=== PATIENT | female | born 1975 | race American Indian/Alaskan Native ===

== ENCOUNTER 2018-04-25 14:29 | Emergency (ER) | payer OTHER ==
[~2018-04-25] VITALS: Ht 154.9 cm; Wt 59.0 kg
[2018-04-25 15:20] LABS: PLATELET COUNT 286 K/uL (152-353)
[2018-04-25 15:31] LABS: POTASSIUM 3.4 mmol/L (3.6-5.2)
[2018-04-25 16:08] VITALS: BP 103/62; TEMP 99.9
== END 2018-04-25 16:08 | disposition home or self-care (01) ==
LOC: ED 14:29
PROVIDERS: Family Medicine
DX: A08.39 Other viral enteritis (principal)
CPT/HCPCS: 36415; 80053; 81000; 85027; 96365; 96374; 99284; J2405